=== PATIENT | male | born 1990 | race Caucasian/White ===

== ENCOUNTER 2022-07-04 09:37 | Emergency (ER) | payer OTHER ==
[2022-07-04 11:07] LABS: BILIRUBIN,URINE NEGATIVE (NEGATIVE); CLARITY,URINE CLEAR (CLEAR); GLUCOSE, URINE (UA) NEGATIVE (NEGATIVE); KETONES,URINE (UA) NEGATIVE (NEGATIVE); LEUKOCYTE ESTERASE, URINE NEGATIVE (NEGATIVE); NITRITE,URINE NEGATIVE (NEGATIVE); OCCULT BLOOD,URINE NEGATIVE (NEGATIVE); PROTEIN,URINE NEGATIVE (NEGATIVE); UROBILINOGEN,URINE 0.2 (NORMAL) E.U./dL (NORMAL)
--- NOTE | 2022-07-04 12:22 | Ultrasound Report ---
PROCEDURE: Testicle w/Doppler INDICATIONS: right testicle swelling TECHNIQUE: Real-time scanning was performed of the scrotum and testicles, with image documentation. Color and p ulse Doppler interrogation was performed of both testicles. COMPARISON: None FINDINGS: Right: The right testicle measures 5.2 x 3.4 x 2.7 cm. Echotexture is homogenous and color and spectr al flows are documented. No hydrocele. The epididymis is mildly enlarged measuring up to 1.8 cm with hyperemia. No varicocele. No evidence of right inguinal hernia, partially evaluated. Left: The left testicle measures 5.6 x 3.7 x 2.8 cm. Echotexture is homogenous and color and spectral flows are documented. No hydrocele. Incidentally noted varicocele measuring up to 0.4 cm. Left epidi dymal vascularity is within normal limits. IMPRESSION: Suspected right epididymitis. Reviewed by: Malcolm Sweet MD on 07/04/2022 12:21 PM PST Approved by: Malcolm Sweet MD on 07/04/2022 12:21 PM PST Station ID: [id number]
[2022-07-04] MEDS ORDERED: cefTRIAXone 1 GM VIAL IM STA (12:29)
[2022-07-04] MEDS ORDERED: LIDOCAINE 1% 2 ML VIAL MC ONE (12:29)
--- NOTE | 2022-07-04 12:33 | ED Physician Documentation ---
History of Present Illness - Stated complaint Stated Complaint: MALE - Chief complaint Chief Complaint: General - History obtained from History obtained from: Patient - History of Present Illness Timing: Last night Pain level max: 6 Pain level now: 5 - Additonal information Additional information: Patient is a 31-year-old male who presents to the emergency department with right testicular pain since last night. Worse with standing. Better with elevation of the scrotum. No penile discharge. No STD exposure. Does not practice anal intercourse. Has not had similar symptoms previously. Described as dull, aching. Review of Systems Constitutional: denies: Fever, Chills Respiratory: denies: Cough GI: denies: Vomiting, Diarrhea : denies: Dysuria, Frequency, Hesitancy, Discharge Skin: denies: Rash Musculoskeletal: denies: Neck pain, Back pain Neurologic: denies: Headache PD PAST MEDICAL HISTORY - Past Medical History Past Medical History: No - Past Surgical History Past Surgical History: No - Present Medications Home Medications: Ambulatory Orders Medication Instructions Recorded Confirmed levoFLOXacin [Levofloxacin] 500 mg PO DAILY #10 tablet 07/04/22 - Allergies Allergies/Adverse Reactions: Allergies Allergy/AdvReac Type Severity Reaction Status Date / Time No Known Drug Allergies Allergy Verified 07/04/22 09:50 - Social History Does the pt have substance abuse?: No - Family History Family history: reports: Non contributory PD ED PE NORMAL - Vitals Vital signs reviewed: Yes - General General: Alert and oriented X 3, No acute distress - HEENT HEENT: Moist mucous membranes - Respiratory Respiratory: No respiratory distress - Abdomen Abdomen: Soft, Non tender, Non distended - Male Male : Other (Tender palpation over the right epididymis. No erythema of the scrotum. No testicular tenderness. Normal lie. No penile discharge. No lymphadenopathy. Normal left testicle) Results - Vitals Vitals: Vital Signs - 24 hr 07/04/22 09:48 Temperature 36 C L Heart Rate 110 H Respiratory 14 Rate Blood Pressure 139/87 H O2 Saturation 96 Oxygen O2 Source Room air - Labs Labs: Laboratory Tests 07/04/22 11:01 Urine Color LT. YELLOW Urine Clarity CLEAR Urine pH 7.0 Ur Specific Palmer <=1.005 Urine Protein NEGATIVE Urine Glucose (UA) NEGATIVE Urine Ketones NEGATIVE Urine Occult Blood NEGATIVE Urine Nitrite NEGATIVE Urine Bilirubin NEGATIVE Urine Urobilinogen 0.2 (NORMAL) Ur Leukocyte Esterase NEGATIVE Ur Microscopic Review NOT INDICATED Urine Culture Comments NOT INDICATED - Rads (name of study) Testicular ultrasound Radiology: Final report received, EMP read contemporaneously, See rad report (Suspected right epididymitis) PD MEDICAL DECISION MAKING - ED course Complexity details: reviewed results, re-evaluated patient, considered differential, d/w patient ED course: 31-year-old male with what appears to be epididymitis. Does not have any STD exposure and does not practice anal intercourse. We will place on Rocephin and Levaquin. We will have him follow-up with his doctor for further care. Patient is well-appearing, nontoxic. Afebrile. Patient counseled regarding signs and symptoms for which I believe and urgent re-evaluation would be necessary. Patient with good understanding of and agreement to plan and is comfortable going home at this time This document was made in part using voice recognition software. While efforts are made to proofread this document, sound alike and grammatical errors may occur. Departure - Departure Disposition: 01 Home, Self Care Clinical Impression: Epididymitis Condition: Good Instructions: ED Epididymitis Follow-Up: your,doctor in 1 week [Other] Prescriptions: levoFLOXacin [Levofloxacin] 500 mg PO DAILY #10 tablet Comments: [facility] [place] Take all antibiotics until gone. Please follow-up with your doctor as needed for further care. Return if you worsen Your ultrasound results are below FINDINGS: Right: The right testicle measures 5.2 x 3.4 x 2.7 cm. Echotexture is homogenous and color and spectral flows are documented. No hydrocele. The epididymis is mildly enlarged measuring up to 1.8 cm with hyperemia. No varicocele. No evidence of right inguinal hernia, partially evaluated. Left: The left testicle measures 5.6 x 3.7 x 2.8 cm. Echotexture is homogenous and color and spectral flows are documented. No hydrocele. Incidentally noted varicocele measuring up to 0.4 cm. Left epididymal vascularity is within normal limits. IMPRESSION: Suspected right epididymitis.
[2022-07-04 12:49] VITALS: BP 135/84
== END 2022-07-04 12:49 | disposition home or self-care (01) ==
LOC: ED 09:37
DX: N45.1 Epididymitis (principal)
CPT/HCPCS: 81001; 81003; 87086; 93975; 96372; 99283; 99284